=== PATIENT | male | born 1990 | race Caucasian/White ===

== ENCOUNTER 2016-10-20 17:05 | Emergency (ER) | payer MEDICAID ==
[~2016-10-20] VITALS: Ht 170.2 cm; Wt 64.4 kg
[2016-10-20 17:15] VITALS: BP 134/67
== END 2016-10-20 19:12 | disposition home or self-care (01) ==
LOC: ED 17:05
DX: K04.7 Periapical abscess without sinus (principal); G62.9 Polyneuropathy, unspecified; R03.0 Elevated blood-pressure reading, without diagnosis of hypertension; H40.9 Unspecified glaucoma; Z98.890 Other specified postprocedural states